=== PATIENT | male | born 1985 | race Caucasian/White ===

== ENCOUNTER 2018-09-23 08:12 | Day surgery (SDC) | payer BC ==
--- NOTE | 2018-09-23 08:22 | EDM.PDOC ---
ED HPI GENERAL MEDICAL PROBLEM - General Chief Complaint: Abdominal Pain Stated Complaint: POSSIBLE DIVERTICULITIS FLARE UP OR APPENDIX Time Seen by Provider: 09/23/18 08:16 - History of Present Illness INITIAL COMMENTS - FREE TEXT/NARRATIVE: HISTORY AND PHYSICAL: History of present illness: Patient 33-year-old white male history diverticulitis presents with a concern of right lower quadrant abdominal pain worse over last 24 hours with associated nausea no vomiting he denies fever chills denies diarrhea urinary symptoms or other complaints Review of systems: As per history of present illness and below otherwise all systems reviewed and negative. Past medical history: As per history of present illness and as reviewed below otherwise noncontributory. Surgical history: As per history of present illness and as reviewed below otherwise noncontributory. Social history: No reported history of drug or alcohol abuse. Family history: As per history of present illness and as reviewed below otherwise noncontributory. Physical exam: HEENT: Atraumatic, normocephalic, pupils reactive, negative for conjunctival pallor or scleral icterus, mucous membranes moist, throat clear, neck supple, nontender, trachea midline. Lungs: Clear to auscultation, breath sounds equal bilaterally, chest nontender. Heart: S1S2, regular, negative for clicks, rubs, or JVD. Abdomen: Soft, nondistended, tenderness in right lower quadrant deep palpation no rebound. Negative for masses or hepatosplenomegaly. Negative for costovertebral tenderness. Pelvis: Stable nontender. Genitourinary: Deferred. Rectal: Deferred. Extremities: Atraumatic, negative for cords or calf pain. Neurovascular unremarkable. Neuro: Awake, alert, oriented. Cranial nerves II through XII unremarkable. Cerebellum unremarkable. Motor and sensory unremarkable throughout. Exam nonfocal. Diagnostics: CBC CMP UA CT abdomen and pelvis Therapeutics: Saline 1 L bolus Zofran 4 mg IV Toradol 30 mg IV Impression: #1 right-sided abdominal pain Definitive disposition and diagnosis as appropriate pending reevaluation and review of above. RLQ Pain Score (Numeric/FACES): 5 - Related Data Allergies Allergy/AdvReac Type Severity Reaction Status Date / Time No Known Allergies Allergy Verified 09/23/18 08:16 Home Meds: Home Meds . [No Known Home Meds] 11/02/13 [History] Past Medical History - Past Health History Medical/Surgical History: Denies Medical/Surgical History HEENT History: Reports: None Cardiovascular History: Reports: None Respiratory History: Reports: None Gastrointestinal History: Reports: None Genitourinary History: Reports: None Musculoskeletal History: Reports: None Neurological History: Reports: None Psychiatric History: Reports: None Endocrine/Metabolic History: Reports: None Hematologic History: Reports: None Immunologic History: Reports: None Oncologic (Cancer) History: Reports: None Dermatologic History: Reports: None - Infectious Disease History Infectious Disease History: Reports: Chicken Pox - Past Surgical History Head Surgeries/Procedures: Reports: None HEENT Surgical History: Reports: Oral Surgery Cardiovascular Surgical History: Reports: None Respiratory Surgical History: Reports: None GI Surgical History: Reports: None Male Surgical History: Reports: None Endocrine Surgical History: Reports: None Neurological Surgical History: Reports: None Musculoskeletal Surgical History: Reports: None Dermatological Surgical History: Reports: None Social & Family History - Family History Family Medical History: Noncontributory - Tobacco Use Smoking Status *Q: Former Smoker Used Tobacco, but Quit: Yes Month/Year Tobacco Last Used: 1 year - Caffeine Use Caffeine Use: Reports: None - Recreational Drug Use Recreational Drug Use: No ED ROS GENERAL - Review of Systems Review Of Systems: ROS reveals no pertinent complaints other than HPI. ED EXAM, GENERAL - Physical Exam Exam: See Below (See dictation) Course - Vital Signs Last Recorded V/S: Last Vital Signs Temp 35.8 C 09/23/18 08:16 Pulse 106 H 09/23/18 08:16 Resp 18 09/23/18 08:16 BP 126/60 09/23/18 08:16 Pulse Ox 99 09/23/18 08:16 - Orders/Labs/Meds Labs: Laboratory Tests 09/23/18 09/23/18 09/23/18 Range/Units 08:20 08:28 08:28 WBC 6.98 (4.0-11.0) K/uL RBC 5.00 (4.50-5.90) M/uL Hgb 16.8 (13.0-17.0) g/dL Hct 46.9 (38.0-50.0) % MCV 93.8 (80.0-98.0) fL MCH 33.6 H (27.0-32.0) pg MCHC 35.8 (31.0-37.0) g/dL RDW Std Deviation 43.3 (28.0-62.0) fl RDW Coeff of [place] 13 (11.0-15.0) % Plt Count 216 (150-400) K/uL MPV 10.00 (7.40-12.00) fL Neut % (Auto) 64.8 (48.0-80.0) % Lymph % (Auto) 25.9 (16.0-40.0) % [place] % (Auto) 6.6 (0.0-15.0) % Eos % (Auto) 2.3 (0.0-7.0) % Baso % (Auto) 0.4 (0.0-1.5) % Neut # (Auto) 4.5 (1.4-5.7) K/uL Lymph # (Auto) 1.8 (0.6-2.4) K/uL [place] # (Auto) 0.5 (0.0-0.8) K/uL Eos # (Auto) 0.2 (0.0-0.7) K/uL Baso # (Auto) 0.0 (0.0-0.1) K/uL Nucleated RBC % 0.0 /100WBC Nucleated RBCs # 0 K/uL Sodium 138 (136-148) mmol/L Potassium 4.0 (3.5-5.1) mmol/L Chloride 101 (98-107) mmol/L Carbon Dioxide 27.2 (21.0-32.0) mmol/L BUN 9 (7.0-18.0) mg/dL Creatinine 1.0 (0.8-1.3) mg/dL Est Cr Clr Drug Dosing 127.79 mL/min Estimated GFR (MDRD) > 60.0 ml/min Glucose 112 H (74-106) mg/dL Calcium 9.0 (8.5-10.1) mg/dL Total Bilirubin 2.0 H (0.2-1.0) mg/dL AST 34 (15-37) IU/L ALT 73 H (14-63) IU/L Alkaline Phosphatase 125 H (46-116) U/L Total Protein 9.0 H (6.4-8.2) g/dL Albumin 4.3 (3.4-5.0) g/dL Globulin 4.7 H (2.6-4.0) g/dL Albumin/Globulin Ratio 0.9 (0.9-1.6) Urine Color YELLOW Urine Appearance CLEAR Urine pH 6.5 (5.0-8.0) Ur Specific [place] 1.010 (1.001-1.035) Urine Protein NEGATIVE (NEGATIVE) mg/dL Urine Glucose (UA) NEGATIVE (NEGATIVE) mg/dL Urine Ketones NEGATIVE (NEGATIVE) mg/dL Urine Occult Blood NEGATIVE (NEGATIVE) Urine Nitrite NEGATIVE (NEGATIVE) Urine Bilirubin NEGATIVE (NEGATIVE) Urine Urobilinogen 0.2 (<2.0) EU/dL Ur Leukocyte Esterase NEGATIVE (NEGATIVE) Meds: Medications Discontinued Medications Generic Name Dose Route Start Last Admin Trade Name Freq PRN Reason Stop Dose Admin Sodium Chloride 1,000 mls @ 999 mls/hr 09/23/18 08:24 09/23/18 08:32 Normal Saline IV 09/23/18 09:24 999 mls/hr .Bolus ONE Administration Ketorolac Tromethamine 30 mg 09/23/18 08:24 09/23/18 08:32 Toradol IVPUSH 09/23/18 08:25 30 mg ONETIME ONE Administration Ondansetron HCl 4 mg 09/23/18 08:24 09/23/18 08:33 Zofran IVPUSH 09/23/18 08:25 4 mg ONETIME ONE Administration Departure - Departure Time of Disposition: 09:44 Disposition: Still A Patient 30 Condition: Good Clinical Impression: Appendicitis - Discharge Information Referrals: PCP,None [Primary Care Provider] - Forms: ED Department Discharge
[2018-09-23] MEDS ORDERED: Sodium Chloride 0.9% 1,000 ML IV ONE (08:24)
[2018-09-23] MEDS ORDERED: Ketorolac 30 MG/ML SDV IVPUSH ONE (08:24)
[2018-09-23] MEDS ORDERED: Ondansetron 4 MG/2 ML SDV IVPUSH ONE (08:24)
[2018-09-23 09:15] LABS: CHLORIDE,CL 101 mmol/L (98-107); SODIUM,NA 138 mmol/L (136-148)
--- NOTE | 2018-09-23 09:21 | CT ---
INDICATION: Right lower quadrant abdominal pain. COMPARISON: None. TECHNIQUE: Noncontrast images. FINDINGS: Subtle low-attenuation suggested in liver parenchyma. Mild dilatation and inflammation of the infra cecal appendix with mild hazy periappendiceal inflammatory attenuation. Slight thickening of the peritoneal reflection at the inferior right pericolic gutter. No fluid or air outside of the lumen of appendix. No free fluid or free air in the peritoneum. No pathologic adenopathy. 15 mm low-attenuation lesion L4 vertebral body with well-defined thin sclerotic margin. This has low-attenuation nearly equivalent to fat within it suggesting hemangioma. Schmorl`s from changes in multiple thoracic and lumbar endplates. IMPRESSION: 1. Mild infracecal appendicitis. 2. Possible minimal hepatic steatosis. 3. Probable L4 hemangioma. Unusual Schmorl`s node also consideration. Please note that all CT scans at this facility use dose modulation, iterative reconstruction, and/or weight-based dosing when appropriate to reduce radiation dose to as low as reasonably achievable. Dictated by Chico Moseley MD @ Sep 23 2018 9:14AM Signed by Dr. Chico Moseley @ Sep 23 2018 9:19AM
[2018-09-23] MEDS ORDERED: cefOXitin 2 GM in Premix Bag 1 BAG IV ONE (09:58)
[2018-09-23] MEDS ORDERED: Lactated Ringers 1,000 ML IV SCH ×3 (10:00→13:30)
--- NOTE | 2018-09-23 10:03 | PCM.CONS ---
H&P History of Present Illness - General Date of Service: 09/23/18 Admit Problem/Dx: Admission Diagnosis/Problem Admission Diagnosis/Problem Acute abdomen Source of Information: Patient History Limitations: Reports: No Limitations - History of Present Illness Initial Comments - Free Text/Narative: 33-year-old gentleman who presented to the emergency room this morning complaining of abdominal pain since chest today. Patient has primarily been in the right lower quadrant. Says his appetite is poor. He does note pain on ambulation. No nausea, vomiting, fever or chills. No diarrhea or change in bowel habits. Symptom Onset Date: 09/22/18 Location: Reports: Abdomen Quality: Reports: Pressure Severity: Mild Improves with: Reports: Rest Worsens with: Reports: Movement Context: Reports: Sick Contact Associated Symptoms: Reports: Loss of Appetite. Denies: Fever/Chills, Nausea/ Vomiting RLQ Pain Score (Numeric/FACES): 5 - Related Data Allergies/Adverse Reactions: Allergies Allergy/AdvReac Type Severity Reaction Status Date / Time No Known Allergies Allergy Verified 09/23/18 08:16 Home Medications: Home Meds . [No Known Home Meds] 11/02/13 [History] Past Medical History - Past Health History Medical/Surgical History: Denies Medical/Surgical History HEENT History: Reports: None Cardiovascular History: Reports: None Respiratory History: Reports: None Gastrointestinal History: Reports: None Genitourinary History: Reports: None Musculoskeletal History: Reports: None Neurological History: Reports: None Psychiatric History: Reports: None Endocrine/Metabolic History: Reports: None Hematologic History: Reports: None Immunologic History: Reports: None Oncologic (Cancer) History: Reports: None Dermatologic History: Reports: None - Infectious Disease History Infectious Disease History: Reports: Chicken Pox - Past Surgical History Head Surgeries/Procedures: Reports: None HEENT Surgical History: Reports: Oral Surgery Cardiovascular Surgical History: Reports: None Respiratory Surgical History: Reports: None GI Surgical History: Reports: None Male Surgical History: Reports: None Endocrine Surgical History: Reports: None Neurological Surgical History: Reports: None Musculoskeletal Surgical History: Reports: None Dermatological Surgical History: Reports: None Social & Family History - Family History Family Medical History: Noncontributory - Tobacco Use Smoking Status *Q: Former Smoker Used Tobacco, but Quit: Yes Month/Year Tobacco Last Used: 1 year - Caffeine Use Caffeine Use: Reports: None - Recreational Drug Use Recreational Drug Use: No H&P Review of Systems - Review of Systems: Review Of Systems: See Below General: Denies: Fever, Chills, Malaise, Weakness, Fatigue HEENT: Reports: No Symptoms Pulmonary: Denies: Shortness of Breath, Wheezing Cardiovascular: Denies: Chest Pain, Palpitations Gastrointestinal: Reports: Abdominal Pain, Anorexia, Decreased Appetite, Flatus. Denies: Black Stool, Bloody Stool, Constipation, Diarrhea, Difficulty Swallowing, Distension, Hematemesis, Hematochezia, Nausea, Vomiting Genitourinary: Reports: No Symptoms Musculoskeletal: Reports: No Symptoms Skin: Reports: No Symptoms Psychiatric: Reports: No Symptoms Neurological: Reports: No Symptoms Hematologic/Lymphatic: Reports: No Symptoms Immunologic: Reports: No Symptoms Exam - Exam Exam: See Below - Vital Signs Vital Signs: Last Vital Signs Temp 96.5 F 09/23/18 08:16 Pulse 106 H 09/23/18 08:16 Resp 18 09/23/18 08:16 BP 126/60 09/23/18 08:16 Pulse Ox 99 09/23/18 08:16 Weight: 250 lb - Exam General: Alert, Oriented, Cooperative, Mild Distress HEENT: Conjunctiva Clear, EACs Clear, EOMI, Hearing Intact, Pupils Equal, Pupils Reactive, Other (malar flush). No: Scleral Icterus Neck: Supple, Trachea Midline Lungs: Clear to Auscultation, Normal Respiratory Effort Cardiovascular: Regular Rate, Regular Rhythm, Normal S1, Normal S2. No: Tachycardia GI/Abdominal Exam: Normal Bowel Sounds, Soft, No Distention, Rebound, Tender. No: Guarding, Rigid, Mass (Male) Exam: No Hernia Rectal (Males) Exam: Deferred Back Exam: Normal Inspection Extremities: Normal Inspection, Normal Range of Motion Peripheral Pulses: 4+: Posterior Tibial (L), Posterior Tibial (R), Dorsalis Pedis (L), Dorsalis Pedis (R) Skin: Warm, Dry, Intact Psychiatric: Alert, Normal Affect, Normal Mood - Patient Data Lab Results Last 24 hrs: Laboratory Results - last 24 hr 09/23/18 09/23/18 09/23/18 Range/Units 08:20 08:28 08:28 WBC 6.98 (4.0-11.0) K/uL RBC 5.00 (4.50-5.90) M/uL Hgb 16.8 (13.0-17.0) g/dL Hct 46.9 (38.0-50.0) % MCV 93.8 (80.0-98.0) fL MCH 33.6 H (27.0-32.0) pg MCHC 35.8 (31.0-37.0) g/dL RDW Std Deviation 43.3 (28.0-62.0) fl RDW Coeff of [place] 13 (11.0-15.0) % Plt Count 216 (150-400) K/uL MPV 10.00 (7.40-12.00) fL Neut % (Auto) 64.8 (48.0-80.0) % Lymph % (Auto) 25.9 (16.0-40.0) % [place] % (Auto) 6.6 (0.0-15.0) % Eos % (Auto) 2.3 (0.0-7.0) % Baso % (Auto) 0.4 (0.0-1.5) % Neut # (Auto) 4.5 (1.4-5.7) K/uL Lymph # (Auto) 1.8 (0.6-2.4) K/uL [place] # (Auto) 0.5 (0.0-0.8) K/uL Eos # (Auto) 0.2 (0.0-0.7) K/uL Baso # (Auto) 0.0 (0.0-0.1) K/uL Nucleated RBC % 0.0 /100WBC Nucleated RBCs # 0 K/uL Sodium 138 (136-148) mmol/L Potassium 4.0 (3.5-5.1) mmol/L Chloride 101 (98-107) mmol/L Carbon Dioxide 27.2 (21.0-32.0) mmol/L BUN 9 (7.0-18.0) mg/dL Creatinine 1.0 (0.8-1.3) mg/dL Est Cr Clr Drug Dosing 127.79 mL/min Estimated GFR (MDRD) > 60.0 ml/min Glucose 112 H (74-106) mg/dL Calcium 9.0 (8.5-10.1) mg/dL Total Bilirubin 2.0 H (0.2-1.0) mg/dL AST 34 (15-37) IU/L ALT 73 H (14-63) IU/L Alkaline Phosphatase 125 H (46-116) U/L Total Protein 9.0 H (6.4-8.2) g/dL Albumin 4.3 (3.4-5.0) g/dL Globulin 4.7 H (2.6-4.0) g/dL Albumin/Globulin Ratio 0.9 (0.9-1.6) Urine Color YELLOW Urine Appearance CLEAR Urine pH 6.5 (5.0-8.0) Ur Specific [place] 1.010 (1.001-1.035) Urine Protein NEGATIVE (NEGATIVE) mg/dL Urine Glucose (UA) NEGATIVE (NEGATIVE) mg/dL Urine Ketones NEGATIVE (NEGATIVE) mg/dL Urine Occult Blood NEGATIVE (NEGATIVE) Urine Nitrite NEGATIVE (NEGATIVE) Urine Bilirubin NEGATIVE (NEGATIVE) Urine Urobilinogen 0.2 (<2.0) EU/dL Ur Leukocyte Esterase NEGATIVE (NEGATIVE) Result Diagrams: 09/23/18 08:28 09/23/18 08:28 Consult PN Assessment/Plan Procedures: Procedures ASSAY OF TROPONIN QUANT (11/02/13) CHEST X-RAY 2VW FRONTAL&LATL (11/02/13) COMPLETE CBC W/AUTO DIFF WBC (04/09/15) COMPREHEN METABOLIC PANEL (04/09/15) ELECTROCARDIOGRAM TRACING (11/02/13) EMERGENCY DEPT VISIT (03/10/18) EMERGENCY DEPT VISIT (11/02/13) EMERGENCY DEPT VISIT (11/02/13) FIBRIN DEGRADATION QUANT (11/02/13) IMMUNIZATION ADMIN (03/10/18) ROUTINE VENIPUNCTURE (04/09/15) RPR S/N/AX/GEN/TRNK 2.5CM/< (03/10/18) TDAP VACCINE 7 YRS/> IM (03/10/18) (1) Appendicitis SNOMED Code(s): 96468007 Code(s): K37 - UNSPECIFIED APPENDICITIS Priority: High Current Visit: Yes Qualifiers: Appendicitis type: acute appendicitis Problem List Initiated/Reviewed/Updated: Yes My Orders Last 24 Hours: My Active Orders 09/23/18 09:57 Antiembolic Devices [RC] PER UNIT ROUTINE Insert Urinary Catheter [OM.PC] Timed Oxygen Therapy [RC] ASDIRECTED RT Incentive Spirometry [RC] Q1HWA Skin Preparation [RC] .PREOP Urinary Catheter Assessment [RC] ASDIRECTED Urinary Catheter Assessment [RC] ASDIRECTED Urinary Catheter Assessment [RC] ASDIRECTED Vital Signs [RC] PER UNIT ROUTINE Antiembolic Hose [OM.PC] Routine Resuscitation Status Routine 09/23/18 09:58 Patient Status [ADT] Routine cefOXitin [Mefoxin in Dextrose,Iso-Osm 2 GM/50 ML] 2 gm Premix Bag 1 bag IV ONETIME 09/23/18 10:00 Lactated Ringers @ 125 MLS/HR(1000ml) Lactated Ringers [Ringers, Lactated] 1, 000 ml IV ASDIRECTED 09/23/18 Breakfast Nothing Per Oral Diet [DIET] Plan: Laparoscopic appendectomy, possible open appendectomy. Both operative procedures, along with the risks, including, but not limited to, bleeding, infection, pneumonia, deep venous thrombosis, pulmonary emboli, myocardial infarction, and adjacent organ injury have been reviewed with the patient who voices understanding, offers no questions and agrees to proceed.
[2018-09-23] MEDS ORDERED: Succinylcholine 200 MG/10 ML MDV ONE (10:56)
[2018-09-23] MEDS ORDERED: Ondansetron 4 MG/2 ML SDV ONE (10:56)
[2018-09-23] MEDS ORDERED: Lidocaine 2% 5 ML SDV ONE (10:56)
[2018-09-23] MEDS ORDERED: Rocuronium 100 MG/10 ML MDV ONE (10:56)
[2018-09-23] MEDS ORDERED: Propofol 200 MG/20 ML SDV ONE (10:56)
[2018-09-23] MEDS ORDERED: fentaNYL 250 MCG/5 ML SDV ONE (10:57)
[2018-09-23] MEDS ORDERED: Midazolam 1 MG/ML 2 ML SDV ONE (10:57)
[2018-09-23] MEDS ORDERED: ceFAZolin 1 GM Vial ONE (11:25)
[2018-09-23] MEDS ORDERED: Bupivacaine 0.5% 10 ML SDV ONE (11:25)
--- NOTE | 2018-09-23 11:42 | PCM.PREANE ---
Preanesthetic Assessment - Anesthesia/Transfusion/Family Hx Anesthesia History: Prior Anesthesia Without Reaction Family History of Anesthesia Reaction: No - Review of Systems General: No Symptoms Pulmonary: No Symptoms Cardiovascular: No Symptoms Gastrointestinal: No Symptoms Neurological: No Symptoms Other: Reports: None - Physical Assessment NPO Status Date: 09/23/18 NPO Status Time: 06:00 O2 Sat by Pulse Oximetry: 99 Respiratory Rate: 18 Vital Signs: Last Vital Signs Temp 96.5 F 09/23/18 08:16 Pulse 106 H 09/23/18 08:16 Resp 18 09/23/18 08:16 BP 126/60 09/23/18 08:16 Pulse Ox 99 09/23/18 08:16 Height: 6 ft 4 in Weight: 113.398 kg ASA Class: 2E Mental Status: Alert & Oriented x3 Airway Class: Mallampati = 2 Dentition: Reports: Normal Dentition Thyro-Mental Finger Breadths: 3 Mouth Opening Finger Breadths: 3 ROM/Head Extension: Full Lungs: Clear to Auscultation, Normal Respiratory Effort Cardiovascular: Regular Rate, Regular Rhythm - Lab Values: Laboratory Last Values WBC 6.98 K/uL (4.0-11.0) 09/23/18 08:28 RBC 5.00 M/uL (4.50-5.90) 09/23/18 08:28 Hgb 16.8 g/dL (13.0-17.0) 09/23/18 08:28 Hct 46.9 % (38.0-50.0) 09/23/18 08:28 MCV 93.8 fL (80.0-98.0) 09/23/18 08:28 MCH 33.6 pg (27.0-32.0) H 09/23/18 08:28 MCHC 35.8 g/dL (31.0-37.0) 09/23/18 08:28 RDW Std Deviation 43.3 fl (28.0-62.0) 09/23/18 08:28 RDW Coeff of [place] 13 % (11.0-15.0) 09/23/18 08:28 Plt Count 216 K/uL (150-400) 09/23/18 08:28 MPV 10.00 fL (7.40-12.00) 09/23/18 08:28 Neut % (Auto) 64.8 % (48.0-80.0) 09/23/18 08:28 Lymph % (Auto) 25.9 % (16.0-40.0) 09/23/18 08:28 [place] % (Auto) 6.6 % (0.0-15.0) 09/23/18 08:28 Eos % (Auto) 2.3 % (0.0-7.0) 09/23/18 08:28 Baso % (Auto) 0.4 % (0.0-1.5) 09/23/18 08:28 Neut # (Auto) 4.5 K/uL (1.4-5.7) 09/23/18 08:28 Lymph # (Auto) 1.8 K/uL (0.6-2.4) 09/23/18 08:28 [place] # (Auto) 0.5 K/uL (0.0-0.8) 09/23/18 08:28 Eos # (Auto) 0.2 K/uL (0.0-0.7) 09/23/18 08:28 Baso # (Auto) 0.0 K/uL (0.0-0.1) 09/23/18 08:28 Nucleated RBC % 0.0 /100WBC 09/23/18 08:28 Nucleated RBCs # 0 K/uL 09/23/18 08:28 Sodium 138 mmol/L (136-148) 09/23/18 08:28 Potassium 4.0 mmol/L (3.5-5.1) 09/23/18 08:28 Chloride 101 mmol/L (98-107) 09/23/18 08:28 Carbon Dioxide 27.2 mmol/L (21.0-32.0) 09/23/18 08:28 BUN 9 mg/dL (7.0-18.0) 09/23/18 08:28 Creatinine 1.0 mg/dL (0.8-1.3) 09/23/18 08:28 Est Cr Clr Drug Dosing 127.79 mL/min 09/23/18 08:28 Estimated GFR (MDRD) > 60.0 ml/min 09/23/18 08:28 Glucose 112 mg/dL (74-106) H 09/23/18 08:28 Calcium 9.0 mg/dL (8.5-10.1) 09/23/18 08:28 Total Bilirubin 2.0 mg/dL (0.2-1.0) H 09/23/18 08:28 AST 34 IU/L (15-37) 09/23/18 08:28 ALT 73 IU/L (14-63) H 09/23/18 08:28 Alkaline Phosphatase 125 U/L (46-116) H 09/23/18 08:28 Total Protein 9.0 g/dL (6.4-8.2) H 09/23/18 08:28 Albumin 4.3 g/dL (3.4-5.0) 09/23/18 08:28 Globulin 4.7 g/dL (2.6-4.0) H 09/23/18 08:28 Albumin/Globulin Ratio 0.9 (0.9-1.6) 09/23/18 08:28 Urine Color YELLOW 09/23/18 08:20 Urine Appearance CLEAR 09/23/18 08:20 Urine pH 6.5 (5.0-8.0) 09/23/18 08:20 Ur Specific [place] 1.010 (1.001-1.035) 09/23/18 08:20 Urine Protein NEGATIVE mg/dL (NEGATIVE) 09/23/18 08:20 Urine Glucose (UA) NEGATIVE mg/dL (NEGATIVE) 09/23/18 08:20 Urine Ketones NEGATIVE mg/dL (NEGATIVE) 09/23/18 08:20 Urine Occult Blood NEGATIVE (NEGATIVE) 09/23/18 08:20 Urine Nitrite NEGATIVE (NEGATIVE) 09/23/18 08:20 Urine Bilirubin NEGATIVE (NEGATIVE) 09/23/18 08:20 Urine Urobilinogen 0.2 EU/dL (<2.0) 09/23/18 08:20 Ur Leukocyte Esterase NEGATIVE (NEGATIVE) 09/23/18 08:20 - Allergies Allergies/Adverse Reactions: Allergies Allergy/AdvReac Type Severity Reaction Status Date / Time No Known Allergies Allergy Verified 09/23/18 08:16 - Acknowledgements Anesthesia Type Planned: General Anesthesia Pt an Appropriate Candidate for the Planned Anesthesia: Yes Alternatives and Risks of Anesthesia Discussed w Pt/Guardian: Yes Pt/Guardian Understands and Agrees with Anesthesia Plan: Yes PreAnesthesia Questionnaire - Past Health History Medical/Surgical History: Denies Medical/Surgical History HEENT History: Reports: None Cardiovascular History: Reports: None Respiratory History: Reports: None Gastrointestinal History: Reports: Diverticulosis Genitourinary History: Reports: None Musculoskeletal History: Reports: None Neurological History: Reports: None Psychiatric History: Reports: None Endocrine/Metabolic History: Reports: None Hematologic History: Reports: None Immunologic History: Reports: None Oncologic (Cancer) History: Reports: None Dermatologic History: Reports: None - Infectious Disease History Infectious Disease History: Reports: Chicken Pox - Past Surgical History Head Surgeries/Procedures: Reports: None HEENT Surgical History: Reports: Oral Surgery ([place] teeth extraction) Cardiovascular Surgical History: Reports: None Respiratory Surgical History: Reports: None GI Surgical History: Reports: None Male Surgical History: Reports: None Endocrine Surgical History: Reports: None Neurological Surgical History: Reports: None Musculoskeletal Surgical History: Reports: None Dermatological Surgical History: Reports: None - SUBSTANCE USE Smoking Status *Q: Former Smoker (quit early 2017) Recreational Drug Use History: No - HOME MEDS Home Medications: Home Meds . [No Known Home Meds] 11/02/13 [History] - CURRENT (IN HOUSE) MEDS Current Meds: Current Medications Lactated Ringer's (Ringers, Lactated) 1,000 mls @ 125 mls/hr IV ASDIRECTED JANE Last Admin: 09/23/18 10:16 Dose: 125 mls/hr Discontinued Medications Bupivacaine HCl (Sensorcaine-Mpf 0.5%) Confirm Administered Dose 10 ml .ROUTE .STK-MED ONE Stop: 09/23/18 11:26 Cefazolin Sodium (Ancef) Confirm Administered Dose 1 gm .ROUTE .STK-MED ONE Stop: 09/23/18 11:26 Fentanyl (Sublimaze) Confirm Administered Dose 250 mcg .ROUTE .STK-MED ONE Stop: 09/23/18 10:58 Sodium Chloride (Normal Saline) 1,000 mls @ 999 mls/hr IV .Bolus ONE Stop: 09/23/18 09:24 Last Admin: 09/23/18 08:32 Dose: 999 mls/hr Cefoxitin Sodium 2 gm/ Premix 50 mls @ 100 mls/hr IV ONETIME ONE Stop: 09/23/18 10:27 Last Admin: 09/23/18 10:18 Dose: 100 mls/hr Ketorolac Tromethamine (Toradol) 30 mg IVPUSH ONETIME ONE Stop: 09/23/18 08:25 Last Admin: 09/23/18 08:32 Dose: 30 mg Lidocaine (Xylocaine-Mpf 2%) Confirm Administered Dose 5 ml .ROUTE .STK-MED ONE Stop: 09/23/18 10:57 Midazolam HCl (Versed 1 Mg/Ml) Confirm Administered Dose 2 mg .ROUTE .STK-MED ONE Stop: 09/23/18 10:58 Ondansetron HCl (Zofran) 4 mg IVPUSH ONETIME ONE Stop: 09/23/18 08:25 Last Admin: 09/23/18 08:33 Dose: 4 mg Ondansetron HCl (Zofran) Confirm Administered Dose 4 mg .ROUTE .STK-MED ONE Stop: 09/23/18 10:57 Propofol (Diprivan 20 Ml) Confirm Administered Dose 200 mg .ROUTE .STK-MED ONE Stop: 09/23/18 10:57 Rocuronium Castaner (Zemuron) Confirm Administered Dose 100 mg .ROUTE .STK-MED ONE Stop: 09/23/18 10:57 Succinylcholine Chloride (Quelicin) Confirm Administered Dose 200 mg .ROUTE .STK -MED ONE Stop: 09/23/18 10:57
[2018-09-23] MEDS ORDERED: Naloxone 0.4 MG/ML Syringe IVPUSH PRN (11:44)
[2018-09-23] MEDS ORDERED: Albuterol 0.083% 2.5 MG/3 ML Neb Soln NEB PRN (11:44)
[2018-09-23] MEDS ORDERED: fentaNYL 100 MCG/2 ML SDV IVPUSH PRN (11:44)
[2018-09-23] MEDS ORDERED: 50% Dextrose in Water 50 ML Syringe IVPUSH PRN (11:44)
[2018-09-23] MEDS ORDERED: EPINEPHrine 1:10,000 1 MG/10 ML Syringe IVPUSH PRN (11:44)
[2018-09-23] MEDS ORDERED: Atropine 0.1 MG/ML 10 ML Syringe IVPUSH PRN ×2 (11:44)
[2018-09-23] MEDS ORDERED: fentaNYL 100 MCG/2 ML SDV ONE (12:32)
[2018-09-23] MEDS ORDERED: Glycopyrrolate 0.2 MG/ML SDV ONE (12:32)
[2018-09-23] MEDS ORDERED: Ondansetron 4 MG/2 ML SDV IVPUSH PRN (13:20)
[2018-09-23] MEDS ORDERED: Acetaminophen/HYDROcodone 325-5 MG Tab PO PRN (13:20)
[2018-09-23] MEDS ORDERED: Morphine 4 MG/ML Syringe IVPUSH PRN (13:20)
[2018-09-23] MEDS ORDERED: Acetaminophen 325 MG Tab PO PRN (13:20)
--- NOTE | 2018-09-23 13:22 | PCM.OPNOTE ---
- General Post-Op/Procedure Note Date of Surgery/Procedure: 09/23/18 Operative Procedure(s): Laparoscopic appendectomy Pre Op Diagnosis: Acute abdomen Post-Op Diagnosis: Acute appendicitis with localized peritonitis Anesthesia Technique: General ET Tube (ASA IIE) Primary Surgeon: Dung Chowdhury Fluid Replacement, Intraop: 1,500 Output, Urine Amount: 30 EBL in mLs: 20 Condition: Stable Free Text/Narrative:: DICTATION [id number] CPT CODE 58877
--- NOTE | 2018-09-23 13:33 | PCM.POSTAN ---
POST ANESTHESIA ASSESSMENT - MENTAL STATUS Mental Status: Alert, Oriented - VITAL SIGNS Pulse Rate: 95 SaO2: 98 Resp Rate: 18 Blood Pressure: 127/88 - RESPIRATORY Respiratory Status: Respiratory Rate WNL, Airway Patent, O2 Saturation Stable - CARDIOVASCULAR CV Status: Pulse Rate WNL, Blood Pressure Stable - GASTROINTESTINAL GI Status: No Symptoms - PAIN Pain Score: 1 - POST OP HYDRATION Hydration Status: Adequate & Stable
[2018-09-23] MEDS: cefOXitin 1 GM in Premix Bag 1 BAG IV SCH ×2 (14:07→17:10)
--- NOTE | 2018-09-23 14:13 | OR ---
SURGEON: Dung Chowdhury M.D. DATE OF PROCEDURE: 09/23/2018 OPERATION PERFORMED: Laparoscopic appendectomy. PRIMARY SURGEON: Dung Chowdhury MD. ANESTHESIA: General endotracheal. ASA CLASSIFICATION: IIE. PREOPERATIVE DIAGNOSIS: Acute abdomen. POSTOPERATIVE DIAGNOSIS: Acute appendicitis with localized peritonitis. ESTIMATED BLOOD LOSS: 20 mL. INTRAOPERATIVE FLUID REPLACEMENT: 1500 mL of crystalloid. INTRAOPERATIVE URINARY OUTPUT: 30 mL. DESCRIPTION OF PROCEDURE: The patient was taken to the operating room and placed on the operating table in the supine position. Time-out was called for appropriate identification of the patient and procedure. Thigh-high TEDs and sequential compression boots were placed. Following satisfactory attainment of general endotracheal anesthesia, a Benavides catheter was placed in the patient's urinary bladder. The abdomen was then prepped with DuraPrep solution. Sterile drapes were applied. The skin just above the umbilicus was infiltrated with 0.5% Marcaine solution. The skin incision was made and deepened through the subcutaneous tissue, obtaining hemostasis with the use of electrocautery. The Veress needle was introduced into the peritoneal cavity. The saline drop test was positive. Carbon dioxide pneumoperitoneum was established with the release set at 13 cm of water. Once we had a satisfactory pneumoperitoneum, 5 mm camera and ports were placed. The patient was now positioned with his head down and rolled to the left. Under camera vision, 12 mm suprapubic and 5 mm left lower quadrant ports were placed. Each incision was preemptively infiltrated with 0.5% Marcaine solution. The appendix was very difficult to locate and was in a retrocecal position. There were acute inflammatory changes. The mesoappendix was taken down with the Harmonic scalpel. There was one bleeding site that required extra coagulation, but at the termination of the procedure, there was no bleeding. Once the appendix was felt to be mobilized, an Endo-ARIS stapler with a blue load was brought to the operating table and fired across the base of the appendix. The appendix was properly placed in an Endo Catch. The right lower quadrant was irrigated with 2 L of solution, 1 L containing 1 g of Ancef. All fluid was aspirated. The right lower quadrant was inspected and there did not appear to be any bleeding nor was there any evidence of stool leakage. The staple line appeared intact. The Endo Catch containing specimen and 12 mm ports were removed. The left lower quadrant port was removed under camera vision and finally the supraumbilical camera and port were removed. Wounds were inspected for hemostasis and bleeding sites were electrocoagulated. The suprapubic and supraumbilical incisions were closed in 2 layers, approximating the subcutaneous tissue with 3-0 Vicryl and the skin with subcuticular 4-0 Monocryl. The left lower quadrant incision was closed with subcuticular 4-0 Monocryl. All incisions were Steri-Stripped and dressed with sterile Tegaderm pads. Before the dressings were removed, the specimen was opened on the back table. It did indeed appear to be an acute appendicitis, and I did confirm that this indeed was the appendix that was removed rather than adipose tissue. At that point, the patient was allowed to emerge from anesthesia. The Benavides catheter was removed prior to emergence and extubation. Following extubation, the patient was taken to recovery room in satisfactory condition. MAXINE RICH /[id number] MARCE
--- NOTE | 2018-09-23 17:17 | PCM48HPAN ---
Post Anesthesia Note - EVALUATION WITHIN 48HRS OF ANESTHETIC Vital Signs in Normal Range: Yes Patient Participated in Evaluation: Yes Respiratory Function Stable: Yes Airway Patent: Yes Cardiovascular Function Stable: Yes Hydration Status Stable: Yes Pain Control Satisfactory: Yes Nausea and Vomiting Control Satisfactory: Yes Mental Status Recovered: Yes Pulse Rate: 65 SaO2: 99 Resp Rate: 16 Blood Pressure: 138/92
== END 2018-09-23 18:11 | disposition home or self-care (01) ==
LOC: MW.ED 08:12 → MW.SDS 09:58 → MW.MS 13:02 → MW.SDS 18:11
PROVIDERS: ATTEND Surgery
DX: K35.30 Acute appendicitis with localized peritonitis, without perforation or gangrene (principal); E66.9 Obesity, unspecified; Z87.891 Personal history of nicotine dependence; Z68.30 Body mass index [BMI] 30.0-30.9, adult
CPT/HCPCS: 36415; 44970; 74176; 80053; 81003; 85025; 96361; 96365; 96375; 99285; A4217; A9270; J0330; J0690; J0694; J1885; J2001; J2250; J2405; J2704; J3010; J3490; J7040; J7120; 99284

== ENCOUNTER 2019-02-09 17:18 | Emergency (ER) | payer BC ==
[2019-02-09] MEDS ORDERED: methylPREDNISolone Sodium Succinate 125 MG/2 ML SDV IM ONE (17:39)
--- NOTE | 2019-02-09 17:54 | EDM.PDOC ---
ED HPI GENERAL MEDICAL PROBLEM - General Chief Complaint: General Stated Complaint: REACTION TO MEDICATION Time Seen by Provider: 02/09/19 17:21 Source of Information: Reports: Patient History Limitations: Reports: No Limitations - History of Present Illness INITIAL COMMENTS - FREE TEXT/NARRATIVE: HISTORY AND PHYSICAL: History of present illness: Patient is a 34 year old male who presents to the emergency room with concerns of an allergic reaction to his medication. He states he does have a history of diverticulitis and has previously taken Cipro and Flagyl for treatment of this. He had noticed some generalized abdominal pain which prompted him to call his primary care provider for a refill on these 2 medications. He states he started taking the Cipro and Flagyl on Tuesday but shortly after had noticed some shortness of breath, palpitations and itching after taking the medication. The symptoms would resolve within a few hours.Patient denies any fever, chills, headache, change in vision, syncope or near syncope. Denies any chest pain, back pain, shortness of breath or cough. Denies any abdominal pain, nausea, vomiting, diarrhea, constipation or dysuria. Has not noted any blood in urine or stool. Patient has been eating and drinking appropriately. Review of systems: As per history of present illness and below otherwise all systems reviewed and negative. Past medical history: As per history of present illness and as reviewed below otherwise noncontributory. Surgical history: As per history of present illness and as reviewed below otherwise noncontributory. Social history: See social history for further information Family history: As per history of present illness and as reviewed below otherwise noncontributory. Physical exam: General: Well-developed and well-nourished 34-year-old male. Alert and oriented. Nontoxic appearing and in no acute distress. HEENT: Atraumatic, normocephalic, pupils equal and reactive bilaterally, negative for conjunctival pallor or scleral icterus, mucous membranes moist, trachea midline. No drooling or trismus noted. No meningeal signs. No hot potato voice noted. Lungs: Clear to auscultation, breath sounds equal bilaterally, chest nontender. Heart: S1S2, regular rate and rhythm without overt murmur Abdomen: Soft, nondistended, nontender. Negative for masses. Negative for costovertebral tenderness. Pelvis: Stable nontender. Skin: Intact, warm, dry. No lesions or rashes noted. Extremities: Atraumatic, moves all extremities per self without difficulty or deficits, negative for cords or calf pain. Neurovascular unremarkable. Neuro: Awake, alert, oriented. Cranial nerves II through XII unremarkable. Cerebellum unremarkable. Motor and sensory unremarkable throughout. Exam nonfocal. Notes: Patient reports he was not actually evaluated for his "diverticulitis". He has not had any recent lab work or imaging done. Due to his complaints of palpitations and shortness of breath he is agreeable to some basic lab works at this time. EKG shows a normal sinus rhythm with rate of 75. Lab work is unremarkable. Vital signs are stable. Patient states he would like to switch his medication if able. Supportive care measures were reviewed and discussed. Voices understanding and is agreeable to plan of care. Denies any further questions or concerns at this time. Diagnostics: CBC, CMP, TSH, EKG Therapeutics: Solu-Medrol Prescription: Augmentin Impression: Adverse drug reaction Plan: 1. Take the Flagyl (metronidazole) with the Augmentin. Stop the Cipro. Avoid any type of alcohol while taking this medication 2. Follow up with your primary care provider as we discussed 3. Return to the ED as needed as discussed. Definitive disposition and diagnosis as appropriate pending reevaluation and review of above. - Related Data Allergies Allergy/AdvReac Type Severity Reaction Status Date / Time No Known Allergies Allergy Verified 09/23/18 08:16 Home Meds: Home Meds Ciprofloxacin HCl [Cipro] 500 mg PO BID 02/09/19 [History] Hydrocodone/Acetaminophen [Hydrocodon-Acetaminoph 2.5-325] 02/09/19 [History] metroNIDAZOLE [Metronidazole] 500 mg PO BID 02/09/19 [History] Past Medical History - Past Health History Medical/Surgical History: Denies Medical/Surgical History HEENT History: Reports: None Cardiovascular History: Reports: None Respiratory History: Reports: None Gastrointestinal History: Reports: Diverticulosis Genitourinary History: Reports: None Musculoskeletal History: Reports: None Neurological History: Reports: None Psychiatric History: Reports: None Endocrine/Metabolic History: Reports: None Hematologic History: Reports: None Immunologic History: Reports: None Oncologic (Cancer) History: Reports: None Dermatologic History: Reports: None - Infectious Disease History Infectious Disease History: Reports: Chicken Pox - Past Surgical History Head Surgeries/Procedures: Reports: None HEENT Surgical History: Reports: Oral Surgery Cardiovascular Surgical History: Reports: None Respiratory Surgical History: Reports: None GI Surgical History: Reports: Appendectomy Male Surgical History: Reports: None Endocrine Surgical History: Reports: None Neurological Surgical History: Reports: None Musculoskeletal Surgical History: Reports: None Dermatological Surgical History: Reports: None Social & Family History - Family History Family Medical History: Noncontributory - Tobacco Use Smoking Status *Q: Current Every Day Smoker Years of Tobacco use: 16 Packs/Tins Daily: 1 - Caffeine Use Caffeine Use: Reports: None - Recreational Drug Use Recreational Drug Use: No ED ROS GENERAL - Review of Systems Review Of Systems: Comprehensive ROS is negative, except as noted in HPI. ED EXAM, GENERAL - Physical Exam Exam: See Below (See dictation) Course - Vital Signs Last Recorded V/S: Last Vital Signs Temp 96.6 F 02/09/19 17:27 Pulse 93 02/09/19 17:27 Resp 20 02/09/19 17:27 BP 127/86 02/09/19 17:27 Pulse Ox 100 02/09/19 17:27 - Orders/Labs/Meds Orders: Active Orders 24 hr Category Date Time Status EKG Documentation Completion [RC] STAT Care 02/09/19 17:39 Active Labs: Laboratory Tests 02/09/19 02/09/19 Range/Units 17:50 17:50 WBC 5.95 (4.0-11.0) K/uL RBC 4.67 (4.50-5.90) M/uL Hgb 14.9 (13.0-17.0) g/dL Hct 42.5 (38.0-50.0) % MCV 91.0 (80.0-98.0) fL MCH 31.9 (27.0-32.0) pg MCHC 35.1 (31.0-37.0) g/dL RDW Std Deviation 40.0 (28.0-62.0) fl RDW Coeff of [place] 12 (11.0-15.0) % Plt Count 253 (150-400) K/uL MPV 10.10 (7.40-12.00) fL Neut % (Auto) 55.5 (48.0-80.0) % Lymph % (Auto) 34.6 (16.0-40.0) % [place] % (Auto) 6.7 (0.0-15.0) % Eos % (Auto) 2.7 (0.0-7.0) % Baso % (Auto) 0.5 (0.0-1.5) % Neut # (Auto) 3.3 (1.4-5.7) K/uL Lymph # (Auto) 2.1 (0.6-2.4) K/uL [place] # (Auto) 0.4 (0.0-0.8) K/uL Eos # (Auto) 0.2 (0.0-0.7) K/uL Baso # (Auto) 0.0 (0.0-0.1) K/uL Nucleated RBC % 0.0 /100WBC Nucleated RBCs # 0 K/uL Sodium 138 (136-148) mmol/L Potassium 3.8 (3.5-5.1) mmol/L Chloride 101 (98-107) mmol/L Carbon Dioxide 25.7 (21.0-32.0) mmol/L BUN 10 (7.0-18.0) mg/dL Creatinine 1.0 (0.8-1.3) mg/dL Est Cr Clr Drug Dosing 126.58 mL/min Estimated GFR (MDRD) > 60.0 ml/min Glucose 80 (74-106) mg/dL Calcium 9.2 (8.5-10.1) mg/dL Total Bilirubin 0.7 (0.2-1.0) mg/dL AST 48 H (15-37) IU/L ALT 71 H (14-63) IU/L Alkaline Phosphatase 107 (46-116) U/L Total Protein 8.7 H (6.4-8.2) g/dL Albumin 4.3 (3.4-5.0) g/dL Globulin 4.4 H (2.6-4.0) g/dL Albumin/Globulin Ratio 1.0 (0.9-1.6) TSH 3rd Generation 1.81 (0.36-3.74) uIU/mL Meds: Medications Discontinued Medications Generic Name Dose Route Start Last Admin Trade Name Freq PRN Reason Stop Dose Admin Methylprednisolone Sodium Succinate 125 mg 02/09/19 17:39 02/09/19 17:58 Solu-Medrol IM 11/15/19 17:40 125 mg ONETIME ONE Administration Departure - Departure Time of Disposition: 18:49 Disposition: Home, Self-Care 01 Clinical Impression: Adverse drug reaction Qualifiers: Encounter type: initial encounter Qualified Code(s): T50.905A - Adverse effect of unspecified drugs, medicaments and biological substances, initial encounter - Discharge Information Referrals: PCP,Unknown [Primary Care Provider] - Forms: ED Department Discharge Additional Instructions: The following information is given to patients seen in the emergency department who are being discharged to home. This information is to outline your options for follow-up care. We provide all patients seen in our emergency department with a follow-up referral. The need for follow-up, as well as the timing and circumstances, are variable depending upon the specifics of your emergency department visit. If you don't have a primary care physician on staff, we will provide you with a referral. We always advise you to contact your personal physician following an emergency department visit to inform them of the circumstance of the visit and for follow-up with them and/or the need for any referrals to a consulting specialist. The emergency department will also refer you to a specialist when appropriate. This referral assures that you have the opportunity for follow-up care with a specialist. All of these measure are taken in an effort to provide you with optimal care, which includes your follow-up. Under all circumstances we always encourage you to contact your private physician who remains a resource for coordinating your care. When calling for follow-up care, please make the office aware that this follow-up is from your recent emergency room visit. If for any reason you are refused follow-up, please contact the [facility] Emergency Department at and asked to speak to the emergency department charge nurse. [facility] [address] [place] [id number] [id number] 1. Take the Flagyl (metronidazole) with the Augmentin. Stop the Cipro. Avoid any type of alcohol while taking this medication 2. Follow up with your primary care provider as we discussed 3. Return to the ED as needed as discussed. - My Orders Last 24 Hours: My Active Orders 02/09/19 17:39 EKG Documentation Completion [RC] STAT - Assessment/Plan Last 24 Hours: My Active Orders 02/09/19 17:39 EKG Documentation Completion [RC] STAT
[2019-02-09 18:41] LABS: BLOOD UREA NITROGEN,BUN 10 mg/dL (7.0-18.0); CARBON DIOXIDE,CO2 25.7 mmol/L (21.0-32.0); CHLORIDE,CL 101 mmol/L (98-107); GLUCOSE RANDOM 80 mg/dL (74-106); POTASSIUM,K 3.8 mmol/L (3.5-5.1); SODIUM,NA 138 mmol/L (136-148)
[2019-02-09] MEDS ORDERED: Amoxicillin/Clavulanate K 875-125 MG Tab PO ONE (18:52)
== END 2019-02-09 19:04 | disposition home or self-care (01) ==
LOC: MW.ED 17:18
DX: R10.84 Generalized abdominal pain (principal); R06.02 Shortness of breath; T36.8X5A Adverse effect of other systemic antibiotics, initial encounter; T37.3X5A Adverse effect of other antiprotozoal drugs, initial encounter; F17.210 Nicotine dependence, cigarettes, uncomplicated
CPT/HCPCS: 36415; 80053; 84443; 85025; 93005; 96372; 99284; A9270; J2930; 99283

== ENCOUNTER 2021-06-09 08:06 | Day surgery (SDC) | payer BC ==
[~2021-06-09 08:06] MED LIST: Lactated Ringers 1,000 ML IV SCH; Sodium Chloride 0.9% 10 ML Syringe FLUSH PRN; Sodium Chloride 0.9% 2.5 ML Syringe FLUSH PRN; Sodium Chloride 0.9% 20 ML SDV IV PRN
[2021-06-09] MEDS ORDERED: fentaNYL 100 MCG/2 ML SDV ONE (08:53)
[2021-06-09] MEDS ORDERED: Propofol 200 MG/20 ML SDV ONE ×2 (08:53→09:58)
[2021-06-09] MEDS ORDERED: Ketamine HCL/NACL, ISO-OSM 50 MG/5 ML Syringe ONE (09:50)
== END 2021-06-09 11:05 | disposition home or self-care (01) ==
LOC: MW.SDS 08:06
PROVIDERS: ATTEND Surgery
DX: K63.5 Polyp of colon (principal); K57.30 Diverticulosis of large intestine without perforation or abscess without bleeding; Z79.899 Other long term (current) drug therapy; Z90.49 Acquired absence of other specified parts of digestive tract; Z87.891 Personal history of nicotine dependence
CPT/HCPCS: 45380; J2704; J3010; J7120; 00811

== ENCOUNTER 2023-02-06 20:33 | Emergency (ER) | payer BC ==
[2023-02-06] MEDS ORDERED: Ketorolac 30 MG/ML SDV IM ONE (21:16)
[2023-02-06] MEDS ORDERED: Cyclobenzaprine 10 MG Tab PO ONE (21:16)
== END 2023-02-06 22:18 | disposition home or self-care (01) ==
LOC: MW.ED 20:33
DX: M25.512 Pain in left shoulder (principal)
CPT/HCPCS: 73030; 96372; 99283; A9270; J1885